=== PATIENT | male | born 1985 | race Caucasian/White ===

== ENCOUNTER → 2017-01-24 | Outpatient (CLI) | payer OTHER ==
--- NOTE | 2017-01-24 10:14 | US ---
HISTORY: Abdominal pain, left lower quadrant pain Study: Abdominal Ultrasound Comparison: None Technique: Multiple ballesteros scale and color flow Doppler images of the abdomen were obtained. Findings: The liver is normal in echotexture. No intraparenchymal mass or intrahepatic biliary ductal dilatat ion can be identified. The gallbladder is normal in its appearance. The common bile duct measures 2 .5 mm. The visualized portions of the pancreas are unremarkable. The spleen is normal in echotexture and si ze. The right and left kidney are normal in echotexture and size. The right kidney measures 9.7 x 3.8 x 5.1 cm. The left kidney measures 10.3 x 5.3 by 4.9 cm. No mass, hydronephrosis, or stone is identifi ed. The visualized portions of the abdominal aorta are normal in size without aneurysmal dilatation. IMPRESSION: 1. Normal abdominal ultrasound. Reported By:
== END ==
LOC: RAD 08:20
DX: R10.32 Left lower quadrant pain (principal)
CPT/HCPCS: 76700